=== PATIENT | female | born 1995 | race Caucasian/White ===

== ENCOUNTER 2017-12-29 22:43 | Emergency (ER) | payer OTHER ==
[~2017-12-29] VITALS: Ht 154.9 cm; Wt 56.9 kg
[2017-12-29 23:00] VITALS: BP 143/94; PULSE 72; TEMP 37; O2SAT 100; Ht 154.9 cm; Wt 56.9 kg
--- NOTE | 2017-12-29 23:16 | EMERGENCY ROOM VISIT NOTE ---
ED Visit Note First contact with patient: 23:03 CHIEF COMPLAINT: Irritated eyes charge HISTORY OF PRESENT ILLNESS: This 22-year-old female patient presents to the emergency department ambulatory, complaining of itchy, irritated, red and watery eyes for a few weeks. She states she has been sneezing with mild nasal congestion. She states today after the shower, she noticed her eyes became more red, watery, and itchy. She noticed a "layer of gout" in the corner of both of her eyes after getting out of the shower. She became concerned and presents to the emergency department for evaluation. The patient does not report a history of allergic rhinitis, but states she believed her symptoms were allergy related. The patient states they have been experiencing congestion , runny nose, mild sore throat. They deny any other symptoms including cough, chills, otalgia, swollen lymph nodes, fever, nausea, or vomiting. The patient describes the drainage from the nose and eyes as clear and runny. There is no sinus pressure or pain. The patient has taken no medications for her symptoms. Denies a rash. Patient denies any eye trauma. She denies any recent foreign body. She does wear contacts, however has not been wearing them due to the irritation. REVIEW OF SYSTEMS: A 10 system review of systems was performed with positives and pertinent negatives listed in the history of present illness. All other systems were reviewed and are negative. ALLERGIES: Azithromycin MEDICATIONS: OCPs PMH: None SOCIAL HISTORY: Patient lives locally with roommates. She is a [employer] student. She denies drug, alcohol, tobacco use. PHYSICAL EXAM: VITALS: Vitals are noted on the nurse's note and reviewed by myself. Vital signs stable. GENERAL: This is a 22-year-old female, in no acute distress, nondiaphoretic, well-developed well-nourished. SKIN: The skin was without rashes, erythema, edema, or bruising. There is no tenting of the skin. Capillary reflex less than 2 seconds. HEAD: Normocephalic atraumatic. EARS: External auditory canals clear, bilateral tympanic membranes pearly oliva without erythema or effusion bilaterally. EYES: Pupils equal round and reactive to light and accommodation. Watery drainage from the bilateral eyes. Conjunctivae with mild injection, but no erythema sclerae without icterus. Extraocular movements intact. NOSE: Patent, turbinates without inflammation or erythema. Clear, runny rhinorrhea noted. No sinus tenderness. MOUTH: Mucous membranes moist. Tonsils are not enlarged. Pharynx without erythema or exudate. Uvula midline. Airway patent. Tongue does not deviate. NECK: Supple without nuchal rigidity. No lymphadenopathy. No thyromegaly. Cervical spine is nontender. No JVD. HEART: Regular rate and rhythm without murmurs gallops or rubs. LUNGS: Clear to auscultation bilaterally without wheezes, rales or rhonchi. No dullness to percussion. No retractions or accessory muscle use. MUSCULOSKELETAL: No muscle atrophy, erythema, or edema noted. Full range of motion without joint tenderness in all extremities. No tenderness to palpation. Normal gait. Strength 5/5 throughout. NEURO: Patient was alert and oriented to person place and time. Normal sensation to light and sharp touch. No focal neurological deficits. EMERGENCY DEPARTMENT COURSE: The patient was seen and evaluated as above. Her symptoms are consistent with allergic rhinitis and conjunctivitis. I recommended antihistamines and specific antihistamine eyedrops to help with her symptoms. I did have a long discussion with the patient regarding the importance of keeping the eyes moist. All questions answered to the patient's satisfaction. She verbalized understanding. Discharge instructions reviewed, and the patient was discharged home in good condition. I attest that I have personally reviewed the patient's current medication list. Blood Pressure Screening: Patient was found to have a slightly elevated blood pressure due to circumstances. I do not believe that the patient requires hypertension monitoring. Etiologies such as allergic rhinitis, sinusitis, upper respiratory infection, conjunctivitis, corneal abrasion, uveitis, glaucoma, periorbital cellulitis, orbital cellulitis, abscess, trauma, as well as others were entertained. DIAGNOSIS: Allergic conjunctivitis, allergic rhinitis\\ The chart was completed utilizing [employer] Speech voice recognition software. Grammatical errors, random word insertions, pronoun errors, and incomplete sentences are an occasional consequence of this system due to software limitations, ambient noise, and hardware issues. Any formal questions or concerns about the content, text, or information contained within the body of this dictation should be directly addressed to the provider for clarification. Allergies Coded Allergies: Azithromycin (Verified Allergy, Mild, Tongue rash, 12/29/17) Vital Signs Date Time Temp Pulse Resp B/P (MAP) Pulse Ox O2 Delivery O2 Flow Rate FiO2 12/29/17 23:00 37.0 72 16 143/94 100 Room Air Departure Information Impression Primary Impression: Allergic conjunctivitis and rhinitis Dispostion Home / Self-Care Condition GOOD Patient Instructions ED Allergic Conjunctivitis, ED Rhinitis Allergic Ch, My [facility] Additional Instructions You were seen in the emergency department today for itchy, red, watery eyes. As discussed, I suspect seasonal allergies as the cause of her symptoms. Begin taking antihistamine such as Claritin, Zyrtec, or Khushi as directed. These medications will help with your sneezing and other symptoms. Use an antihistamine drops such as Pataday or Zaditor. These antihistamine drops will work directly on the eyes to help with your symptoms. Use plenty of artificial tears such as visine to help reduce the dryness and itchiness in your eyes. As discussed, I do recommend trying a gel drop, as it is thicker and will help to provide a better barrier. No contacts for 2-3 days or until your eyes and symptoms improved. Ibuprofen(Motrin, Advil) may be used for fever or pain. Use 600mg every six hours as needed. Take with food. Avoid using more than 2400mg in a 24 hour period. Do not use 2400mg per day for more than three consecutive days without physician direction. Prolonged inappropriate use can lead to stomach upset or ulcers. (AND/OR) Acetaminophen(Tylenol) may be used for fever or pain. Use 1000mg every six hours as needed. Avoid using more than 3000mg in a 24 hour period. Follow-up with your PCP or [facility] services within 1 week if no improvement in symptoms. Return to the emergency department for any further concerns. Problem Qualifiers Primary Impression: Allergic conjunctivitis and rhinitis Laterality: bilateral Qualified Codes: H10.13 - Acute atopic conjunctivitis , bilateral; J30.9 - Allergic rhinitis, unspecified
== END 2017-12-29 23:20 | disposition home or self-care (01) ==
LOC: C.EDB 22:45 → C.EDC 23:20
DX: H10.13 Acute atopic conjunctivitis, bilateral (principal); J30.9 Allergic rhinitis, unspecified